=== PATIENT | male | born 1945 | race Two or more races ===

== ENCOUNTER 2021-01-28 06:08 | Inpatient (IN) | payer OTHER ==
[~2021-01-28] VITALS: Ht 170.2 cm; Wt 76.2 kg
[2021-01-28] MEDS ORDERED: PREDNISONE 5MG (06:27)
[2021-01-28] MEDS ORDERED: PREDNISONE2.5 MG (06:28)
[2021-01-28] MEDS ORDERED: HYDROXYCHLOROQ100 GM (06:29)
[2021-01-28] MEDS ORDERED: METOTREXATE (06:31)
--- NOTE | 2021-01-28 06:32 | NUR ---
PACIENTE DEL DR. Won MATTSON REFIERE TENER 4 FISTULAS ANALES
--- NOTE | 2021-01-28 07:32 | NUR ---
PACIENTE EVALUADO POR DR. RIDER. MRS. [facility]urg[facility].SKIP COLECTA MUESTRAS DE LABORATORIO Y ADMINISTRA TERAPIA INTRAVENOSA HOANG ORDEN MEDICA Y UTILIZANDO TECNICAS ASEPTICAS. . SE MANTIENE A PACIENTE BAJO OBSERVACION POR CAMBIO. PACIENTE TIENE CONSULTA CON EL DR. MATTSON.
[2021-01-28] MEDS ORDERED: AMOX-CLAV 875-1 EAC1 (16:36)
[2021-01-28] MEDS ORDERED: TREXALL7.5 MG (16:36)
== END 2021-02-19 12:13 | DRG 394 ==
LOC: ER 06:08 → SEC-K 08:10 → SURH 08:10 → ICU 02-12 20:55 → SURH 02-15 18:00
PROVIDERS: ADMIT Surgery; ATTEND Surgery
PROC: 8E0ZXY6 Isolation (ICD-10-PCS; 2021-01-28)
PROC: BW2110Z Computerized Tomography (CT Scan) of Abdomen and Pelvis using Low Osmolar Contrast, Unenhanced and Enhanced (ICD-10-PCS; 2021-01-28)
PROC: 3E0F7SF Introduction of Other Gas into Respiratory Tract, Via Natural or Artificial Opening (ICD-10-PCS; 2021-01-29)
PROC: 0D9P70Z Drainage of Rectum with Drainage Device, Via Natural or Artificial Opening (ICD-10-PCS; principal; 2021-01-29 18:00)
PROC: 30233N1 Transfusion of Nonautologous Red Blood Cells into Peripheral Vein, Percutaneous Approach (ICD-10-PCS; 2021-02-04)
PROC: BT43ZZZ Ultrasonography of Bilateral Kidneys (ICD-10-PCS; 2021-02-04)
PROC: 0W9 Anatomical Regions, General, Drainage (ICD-10-PCS; 2021-02-06)
PROC: 02HV33Z Insertion of Infusion Device into Superior Vena Cava, Percutaneous Approach (ICD-10-PCS; 2021-02-07)
PROC: 4A033R1 Measurement of Arterial Saturation, Peripheral, Percutaneous Approach (ICD-10-PCS; 2021-02-11)
PROC: 5A09457 Assistance with Respiratory Ventilation, 24-96 Consecutive Hours, Continuous Positive Airway Pressure (ICD-10-PCS; 2021-02-11)
PROC: BW2110Z Computerized Tomography (CT Scan) of Abdomen and Pelvis using Low Osmolar Contrast, Unenhanced and Enhanced (ICD-10-PCS; 2021-02-12)
PROC: B54DZZZ Ultrasonography of Bilateral Lower Extremity Veins (ICD-10-PCS; 2021-02-12)
PROC: 4A12X4Z Monitoring of Cardiac Electrical Activity, External Approach (ICD-10-PCS; 2021-02-12)
PROC: B24BZZZ Ultrasonography of Heart with Aorta (ICD-10-PCS; 2021-02-12)
DX: K61.1 Rectal abscess (principal); N17.8 Other acute kidney failure; E87.2 Acidosis; K62.5 Hemorrhage of anus and rectum; D64.9 Anemia, unspecified; I10 Essential (primary) hypertension; G47.33 Obstructive sleep apnea (adult) (pediatric); M06.8A Other specified rheumatoid arthritis, other specified site; E87.6 Hypokalemia; B96.20 Unspecified Escherichia coli [E. coli] as the cause of diseases classified elsewhere; B95.61 Methicillin susceptible Staphylococcus aureus infection as the cause of diseases classified elsewhere; B96.5 Pseudomonas (aeruginosa) (mallei) (pseudomallei) as the cause of diseases classified elsewhere; I87.2 Venous insufficiency (chronic) (peripheral); Z20.822 Contact with and (suspected) exposure to COVID-19; Z85.46 Personal history of malignant neoplasm of prostate; R33.8 Other retention of urine; R09.02 Hypoxemia